=== PATIENT | female | born 1960 | race African-American/Black ===

== ENCOUNTER 2025-04-17 11:24 | Outpatient (AMB) | payer OTHER, SELFPAY ==
--- NOTE | 2025-04-17 11:26 | MHC.OFFVIS ---
Vital Signs 04/17/25 11:39 Height 4 ft 11 in Weight 141 lb BMI 28.5 BP 169/73 H Blood Pressure Location Rt brachial Position Sitting Pulse 105 H Intake Visit Reasons: periumbilical hernia Intake Note: Patient referred by PCP Dr. Cardona for assessment of periumbilical hernia. Present for many yrs. Patient c/o: hernia is bothersome at times. Feels it is enlarging. Reports hx of Umbilical hernia repair about 16yrs ago at [facility]. Imaging: Abdomen US~ 03-22-2025 Network Applications Specialist Required: No Accompanied by: bobbi Smith Allergies No Known Allergies Allergy (Verified 04/17/25 11:33) Medication List - Last Reconciled 04/17/25 by Jaron Melgar MD albuterol sulfate 90 mcg/actuation 2 puffs inhalation Q4H PRN atorvastatin 40 mg PO DAILY celecoxib 200 mg PO DAILY PRN cyclobenzaprine 10 mg PO TID PRN spironolactone 25 mg PO DAILY verapamil ER 120 mg PO DAILY HPI Comments Details: Patient has a longstanding history of recurrent periumbilical ventral hernia. She had a in the remote past via a lower midline vertical laparotomy approach. She had a periumbilical hernia complex according to her that was repaired via open technique with mesh at [facility] approximately 16 years ago. She has no idea who did the operation. She is adamant it was not done with little incisions and a TV camera. They did not have that back then . She has a recent ultrasound at this indicative of a periumbilical ventral hernia approximately 6-7 mm in diameter. It may contain hollow viscus. It causes her discomfort although no obstructive symptoms. She desires operative intervention. [facility] Medical History (Updated 04/17/25 @ 12:08 by Jaron Melgar MD) Hx of breast cancer HTN (hypertension) Surgical History (Updated 04/17/25 @ 11:35 by TARIQ Song) Hx of umbilical hernia repair Social History (Updated 04/17/25 @ 11:36 by TARIQ Song) Unable to assess alcohol history related to: Unable to respond Cigarettes Per Day: 10 Review of Systems Const All systems reviewed & are unremarkable except as noted in HPI and below Physical Exam Vital Signs: Last Vital Signs Pulse 105 H 04/17/25 11:39 BP 169/73 H 04/17/25 11:39 BMI result Body Mass Index 28.5 Const General: cooperative, healthy appearing and comfortable HEENT Head: Yes normal to inspection Eyes Pupils: Equal, round and reactive pupils present EOM: EOMs intact bilaterally Neck Neck: Yes normal visual inspection Chest Chest palpation & inspection: normal inspection of the chest Resp Effort & Inspection: normal respiratory effort and able to speak in complete sentences Cardio Rate: regular rate Rhythm: regular rhythm GI Other: Soft nontender nondistended well-healed lower midline scar. Poorly defined mass about the umbilicus. Somewhat or slightly tender to palpation. Not really reducible. I can not appreciate any scar associated with her hernia repair that she reports took place via an open infraumbilical technique. Abdomen image:  1. presumed hernia 2. scar Back/Spine/Pelvis Thoracic/Lumbar Spine: thoracic and lumbar spine normal to inspection Skin General skin exam: no rashes or lesions noted Neuro Cranial nerves: Yes Equal, round and reactive pupils present Assessment & Plan Assessment & Plan (1) Recurrent ventral hernia: Code(s): K43.2 - Incisional hernia without obstruction or gangrene Category: Medical Plan: I told the patient that I felt operative intervention was appropriate. I described to her the nature laparoscopic possible open ventral hernia repair with mesh. I told her that what we did would be predicated on the findings at the time of her surgery. She indicated that she understood. I described to her the risks of bleeding, the risk of infection, the risk of hernia recurrence, the risk of damage to surrounding structures both recognized and unrecognized at time of surgery, and the risk that the surgery would not solve her current problems with abdominal discomfort were all reviewed with her in detail. She told me that she understood. She told me that she consider options. She told me that she understood and accepted the risks that she described as inherent to surgery and lastly she indicated that despite the risks she still wished to proceed with the operative intervention. Coding Level of Care Code New Pt Level 3 (86921) Diagnoses Recurrent ventral hernia K43.2 Time Spent (min) 30 Comment Patient visit record review and coordination of care time
[2025-04-17 11:39] VITALS: BP 169/73; PULSE 105; BMI 28.5
== END 2025-04-17 12:01 | disposition home or self-care (01) ==
LOC: HO.HGS 11:25
PROVIDERS: PCP Internal Medicine; Visit Provider Surgery
DX: K43.2 Incisional hernia without obstruction or gangrene (principal)
CPT/HCPCS: 99203